=== PATIENT | female | born 1955 | race Native Hawaiian/Other Pacific Islander ===

== ENCOUNTER 2017-06-10 07:20 | Outpatient (CLI) | payer OTHER | END 2017-06-10 19:59 | disposition home or self-care (01) | LOC: LABW 07:20 | DX: M79.671 Pain in right foot (principal); I73.00 Raynaud's syndrome without gangrene | CPT/HCPCS: 36415; 81374; 82550; 84550; 85651; 86039; 86140; 86200 ==

== ENCOUNTER 2017-09-10 09:48 | Outpatient (CLI) | payer OTHER | END 2017-09-10 23:46 | disposition home or self-care (01) | LOC: MRI 09:48 | DX: M50.93 Cervical disc disorder, unspecified, cervicothoracic region (principal); M25.512 Pain in left shoulder ==

== ENCOUNTER 2021-06-29 10:52 | Outpatient (CLI) | payer OTHER | END 2021-06-29 19:30 | disposition home or self-care (01) | LOC: MAMMO 10:52 | PROVIDERS: ATTEND Nurse Practitioner Family | DX: Z12.31 Encounter for screening mammogram for malignant neoplasm of breast (principal) ==

== ENCOUNTER 2022-08-03 09:23 | Outpatient (CLI) | payer OTHER ==
[2022-08-03 09:44] LABS: PLATELET COUNT 204 K/uL (152-353)
[2022-08-03 10:04] LABS: POTASSIUM 3.6 mmol/L (3.6-5.2)
== END 2022-08-03 19:18 | disposition home or self-care (01) ==
LOC: LAB 09:23
PROVIDERS: ATTEND Internal Medicine
DX: Z00.00 Encounter for general adult medical examination without abnormal findings (principal); E03.8 Other specified hypothyroidism; I10 Essential (primary) hypertension; I73.00 Raynaud's syndrome without gangrene; E55.9 Vitamin D deficiency, unspecified; Z79.899 Other long term (current) drug therapy
CPT/HCPCS: 36415; 80053; 80061; 82043; 82306; 82533; 82607; 82626; 82746; 83036; 83735; 84436; 84443; 84479; 85027